=== PATIENT | male | born 1985 | race Caucasian/White ===

== ENCOUNTER 2025-01-29 19:08 | Emergency (ER) | payer MEDICARE, SELFPAY ==
[2025-01-29] VITALS (9 sets, daily range): BP systolic 166–225; BP diastolic 126–162; BMI 33.0
[2025-01-29 19:41] LABS: % Basophils 1.1 % (0-2); % Eosinophils 8.5 % (0-6); % Immature Granulocytes 0.5 % (0-0.5); % Lymphocytes 35.6 % (20.5-51.1); % Monocytes 7.2 % (1.7-9.3); % Neutrophils 47.1 % (42.2-75.2); Absolute Basophils 0.1 10^3/uL (0-0.2); Absolute Eosinophils 0.6 10^3/uL (0-0.7); Absolute Lymphocytes 2.3 10^3/uL (1.2-3.4); Absolute Monocytes 0.5 10^3/uL (0.1-0.6); Absolute Neutrophils 3.1 10^3/uL (1.4-6.5); Hematocrit 41.3 % (39.0-52.0); Hemoglobin 13.7 g/dL (13.0-18.0); Mean Corp Hgb Conc. 33.2 g/dL (33.0-37.0); Mean Corpuscular Hgb 28.8 pg (27.0-31.0); Mean Corpuscular Volume 86.9 fL (80.0-94.0); Mean Platelet Volume 9.2 fL (7.4-10.4); Nucleated Red Blood Cells % 0 % (-); Platelet Count 217 10^3/uL (130-400); Red Blood Cell Count 4.75 10^6/uL (4.70-6.10); Red Cell Dist. Width 13.8 % (11.5-14.5); White Blood Cell Count 6.6 10^3/uL (4.8-10.8)
[2025-01-29 19:56] LABS: ALT (SGPT) 27 U/L (0-50); AST (SGOT) 58 U/L (17-59); Albumin 4.6 g/dl (3.5-5.0); Alkaline Phosphatase 68 U/L (38-126); Blood Urea Nitrogen 19 mg/dl (9-20); Calcium 10.1 mg/dl (8.4-10.2); Carbon Dioxide 23 mmol/L (22-30); Chloride 107 mmol/L (98-107); Estimated Creatinine Clearance 106 ml/min; Glucose 105 mg/dl (70-99); Potassium 4.4 mmol/L (3.5-5.1); Sodium 139 mmol/L (135-145); Total Bilirubin 0.3 mg/dl (0.2-1.3); Total Protein 7.7 g/dl (6.3-8.2); eGFR > 60.00
[2025-01-29 19:58] LABS: Alcohol None Detected
[2025-01-29 20:01] LABS: Troponin I < 0.012 ng/ml
[2025-01-29] MEDS: NSS 1000 IV (21:25)
[2025-01-29] MEDS: TRANDATE 10 MG IV (21:26)
[2025-01-29] MEDS: ATIVAN 1 MG IV (21:26)
--- NOTE | 2025-01-29 21:59 | ED.GENMED ---
History of Present Illness
<Maik Jones MD - Last Filed: 01/30/25 15:09>
General
Chief Complaint: Suicidal Ideation
Source: patient
Exam Limitations: none
Time Seen by Provider: 01/29/25 19:49
Nursing documentation reviewed up to this point in time: agreed with
History of Present Illness
History of Present Illness:
Patient with history of hypertension and depression, with previous history of suicidal attempts, presents to ED secondary to elevated blood pressure along with intermittent chest pain or shortness of breath over the past 1 month, despite taking
lisinopril as an outpatient. In addition, patient does report drinking alcohol, including 3 days ago. Patient has had difficult time sleeping with decreased appetite. At the time evaluation ED, patient does report feeling suicidal with plan.
Denies homicidal ideation. Denies any chest pain at the time of evaluation. Patient states that he has not been sleeping well recently due to depression.
Review of Systems
<Maik Jones MD - Last Filed: 01/30/25 15:09>
Review of Systems
Allergies reviewed?: Yes
All Other Systems: ROS reviewed and negative except as documented in HPI and ROS
Constitutional: Reports no symptoms
EENT: Reports no symptoms
Respiratory: Reports trouble breathing
Cardiac: Reports chest pain
ABD/GI: Reports no symptoms
: Reports no symptoms
Musculoskeletal: Reports no symptoms
Skin: Reports no symptoms
Neurological: Reports no symptoms
Psychiatric: Reports depression and suicidal
Phy Exam
<Maik Jones MD - Last Filed: 01/30/25 15:09>
Physical Exam
Physical Exam:
Physical Exam
General: no apparent distress, not acutely ill. afebrile
Head: nc/at. eomi
Neck: supple. normal range of motion.
Heart: s1/s2 regular rate and rhythm, no murmur. .
Lungs: no acute respiratory distress. clear bilaterally
Abdomen: normal bowel sounds. not tender.
Neuro: alert and oriented x 3. no focal neurological deficits
Skin: no rash
Psychiatric: well kept. interactive and cooperative
Extremities: no edema. no calf tenderness.
Course
<Maik Jones MD - Last Filed: 01/30/25 15:09>
Orders/Labs/Results
Orders:
Orders
01/29/25 19:12
1:1 Observation - Suicide/ Violent Behavior As Directed
Crisis Consult Urgent
Reason for Consult: SUICIDAL WITH PLAN
01/29/25 19:23
Electrocardiogram (*1) Urgent
Reason for Study: Chest Pain
Crisis Consult Urgent
Reason for Consult: +SI
EKG- Treatment ONCE
01/29/25 19:32
Alcohol Urgent
Complete Blood Count/With Diff Urgent
Comprehensive Metabolic Panel Urgent
Troponin I Urgent
01/29/25 21:15
0.9% Sodium Chloride 1000 ml [Nss] 1,000 ml IV BOLUS
Labetalol HCl [Trandate] 10 mg IV NOW STA
Lorazepam [Ativan] 1 mg IV NOW STA
01/29/25 22:11
Labetalol HCl [Trandate] 20 mg IV NOW STA
01/29/25 23:07
Lisinopril [Zestril] 20 mg PO NOW STA
01/29/25 23:28
Fentanyl, Urine Urgent
Urine Drug Abuse Screen Urgent
Date Specimen was Collected: 01/29/25
Time Specimen was Collected: 19:23
01/30/25 02:33
Amlodipine [Norvasc] 5 mg PO NOW STA
Abnormal Lab Results
01/29/25 01/29/25
19:32 23:28
Eosinophils % 8.5 H %
(0-6)
Glucose 105 H mg/dl
(70-99)
Ur Amphetamines Screen Positive H
(Negative)
U Methamphetamines Scrn Positive H
(Negative)
U Benzodiazepines Scrn Positive H
(Negative)
01/29/25 19:32
01/29/25 19:32
Vital Signs
Initial and Last Documented VS:
Initial Vital Signs
Temp Pulse BP Pulse Ox
98.9 F 122 225/162 100
01/29/25 19:15 01/29/25 19:15 01/29/25 19:15 01/29/25 19:15
Last Documented Vital Signs
Temp Pulse Resp BP Pulse Ox
98.5 F 82 20 138/79 99
01/30/25 09:55 01/30/25 09:55 01/30/25 09:55 01/30/25 09:55 01/30/25 09:55
Kathielt;Kun Iyer, - Last Filed: 01/30/25 01:37>
Orders/Labs/Results
Orders:
Orders
01/29/25 19:12
1:1 Observation - Suicide/ Violent Behavior As Directed
Crisis Consult Urgent
Reason for Consult: SUICIDAL WITH PLAN
01/29/25 19:23
Electrocardiogram (*1) Urgent
Reason for Study: Chest Pain
Crisis Consult Urgent
Reason for Consult: +SI
EKG- Treatment ONCE
01/29/25 19:32
Alcohol Urgent
Complete Blood Count/With Diff Urgent
Comprehensive Metabolic Panel Urgent
Troponin I Urgent
01/29/25 21:15
0.9% Sodium Chloride 1000 ml [Nss] 1,000 ml IV BOLUS
Labetalol HCl [Trandate] 10 mg IV NOW STA
Lorazepam [Ativan] 1 mg IV NOW STA
01/29/25 22:11
Labetalol HCl [Trandate] 20 mg IV NOW STA
01/29/25 23:07
Lisinopril [Zestril] 20 mg PO NOW STA
01/29/25 23:28
Fentanyl, Urine Urgent
Urine Drug Abuse Screen Urgent
Date Specimen was Collected: 01/29/25
Time Specimen was Collected: 19:23
01/30/25 02:33
Amlodipine [Norvasc] 5 mg PO NOW STA
Abnormal Lab Results
01/29/25 01/29/25
19:32 23:28
Eosinophils % 8.5 H %
(0-6)
Glucose 105 H mg/dl
(70-99)
Ur Amphetamines Screen Positive H
(Negative)
U Methamphetamines Scrn Positive H
(Negative)
U Benzodiazepines Scrn Positive H
(Negative)
01/29/25 19:32
01/29/25 19:32
Vital Signs
Initial and Last Documented VS:
Initial Vital Signs
Temp Pulse BP Pulse Ox
98.9 F 122 225/162 100
01/29/25 19:15 01/29/25 19:15 01/29/25 19:15 01/29/25 19:15
Last Documented Vital Signs
Temp Pulse Resp BP Pulse Ox
98.5 F 82 20 138/79 99
01/30/25 09:55 01/30/25 09:55 01/30/25 09:55 01/30/25 09:55 01/30/25 09:55
<Maik Jones MD - Last Filed: 01/30/25 15:09>
MDM/Problems Addressed
MDM/Problems Addressed:
One-to-one observation continuing secondary to suicidal ideation with plan. Patient will be transferred to inpatient psychiatric facility, once medically cleared.
Patient with hypertension requiring treatment. Will administer additional dose of his home medication, lisinopril, and reassess.
<Maik Jones MD - Last Filed: 01/30/25 15:09>
*Critical Care Note
Total Time (30-74mins, 75-104mins- exclusive of procedures): Not Applicable
<Kun Iyer DO - Last Filed: 01/30/25 01:37>
Update Note
Update Note:
0131: Pt awaiting psych placement pending improvement of blood pressure. Pt has asymptomatic hypertension. His blood pressure is currently much improved at 154/100. Given he is asymptomatic there is no medical inidcation for further treatment.
Adjustment of outpatient regimen would be the most appropriate management. Treatment of his psychiatric emergency is much more critical.
ED Attending Note
<Maik Jones MD - Last Filed: 01/30/25 15:09>
-
Portions of this chart may have been created with voice recognition software.� Occasional wrong word or��sound alike� substitutions may have occurred due to the inherent limitations of voice recognition software.
Discharge Plan
Departure
Patient Disposition: Psych Facility
Date of Disposition: 01/30/25
Time of Disposition: 01:34
Condition: Fair
Discharge Problem:
Suicidal ideation, Acute depression
Prescriptions:
New
amlodipine 5 mg tablet
5 mg PO DAILY Qty: 30 0RF
No Action
amlodipine 5 mg Tablet
5 mg PO DAILY
Referrals:
Kallie Rousseau MD [Family Provider] -
Interventions
Interventions:
*Risk Screen - Suicide Last Done: 01/29/25 19:10
*General Assessment Last Done: 01/29/25 19:46
*Neglect/Abuse Screening Last Done: 01/29/25 19:19
*ED- Fall Risk Assessment Last Done: 01/29/25 19:19
*ED COVID-19 Vaccine History Last Done: 01/29/25 19:46
*Nursing Disposition Last Done: 01/30/25 09:55
ED-Psychological Assessment Last Done: 01/29/25 20:45
Discharge Date and Time
Discharge Date/Time: 01/30/25 09:57
Print Language: ESTONIAN
[2025-01-29] MEDS: TRANDATE 20 MG IV (22:17)
[2025-01-29] MEDS: ZESTRIL 20 MG PO (23:16)
[2025-01-29 23:53] LABS: Amphetamines Positive (Negative); Benzodiazepines Positive (Negative); Methamphetamines Positive (Negative)
[2025-01-29 23:54] LABS: Barbiturates Negative (Negative); Buprenorphine Negative (Negative); Cocaine Negative (Negative); Marijuana Negative (Negative); Methadone Negative (Negative); Opiates Negative (Negative); Phencyclidine Negative (Negative); Tricyclic Antidepressants Negative (Negative)
[2025-01-30] VITALS: BP 182/112
[2025-01-30 00:14] LABS: Fentanyl, Urine Negative (Negative)
[2025-01-30 01:00] VITALS: BP 154/100
[2025-01-30] MEDS: NORVASC 5 MG PO (03:52)
[2025-01-30 09:55] VITALS: BP 138/79
== END 2025-01-30 09:57 ==
LOC: EMR 19:08
PROVIDERS: Emergency Medicine; EMERGENCY PHYSICIAN Emergency Medicine; FAMILY PHYSICIAN Internal Medicine
DX: R45.851 Suicidal ideations (principal); F32.A Depression, unspecified; I10 Essential (primary) hypertension; Z91.51 Personal history of suicidal behavior
CPT/HCPCS: 99283; 96374; 96375; 96376; 80053; 80306; 80307; 82077; 84484; 85025; 93005

== ENCOUNTER 2025-02-10 11:28 | Emergency (ER) | payer MEDICARE, SELFPAY ==
[2025-02-10 11:32] VITALS: BP 153/96
--- NOTE | 2025-02-10 12:12 | ED.GENMED ---
History of Present Illness
General
Chief Complaint: Crisis Evaluation
Source: patient
Exam Limitations: none
Time Seen by Provider: 02/10/25 11:45
Nursing documentation reviewed up to this point in time: agreed with
History of Present Illness
History of Present Illness:
39-year-old male feels depressed suffers from depression recently admitted and discharged from [facility] is on Cymbalta and BuSpar states he has been taking his meds not helping apparently is homeless, cannot live with friends who is living
with before no overdose no alcohol
Past History
Past History
ED Past Medical History: HTN and Psychiatric
Social History
Tobacco: Non-smoker
Alcohol: None
Drug: None
Personal: Single
Living: homeless
Employment: Not employed
Review of Systems
Review of Systems
All Other Systems: Not applicable
Psychiatric: Reports depression; Denies anxiety, suicidal or hallucinations
Phy Exam
Physical Exam
Physical Exam:
Physical Exam
General: 39 male flat affect
Neck: No jaundice
Heart: Regular
Lungs: no acute respiratory distress.
Neuro: alert and oriented. no focal neurological deficits
Skin: no rash
Psychiatric: Depressed, not suicidal not hallucinating
Extremities: no edema.
Course
Orders/Labs/Results
Orders:
Orders
02/10/25 11:31
1:1 Observation - Suicide/ Violent Behavior As Directed
Crisis Consult Urgent
Reason for Consult: SI, depression
Vital Signs
Initial and Last Documented VS:
Initial Vital Signs
Temp Pulse Resp BP Pulse Ox
98 F 107 16 153/96 100
02/10/25 11:32 02/10/25 11:32 02/10/25 11:32 02/10/25 11:32 02/10/25 11:32
Last Documented Vital Signs
Temp Pulse Resp BP Pulse Ox
98 F 107 16 153/96 100
02/10/25 11:32 02/10/25 11:32 02/10/25 11:32 02/10/25 11:32 02/10/25 11:32
MDM/Problems Addressed
Differential Diagnosis Includes:
Depression, social stressors, homelessness, not suicidal
MDM/Problems Addressed:
Depression
Chronic conditions affecting care: Psychiatric illness
Acute Exacerbation and/or Progression of Chronic Illness: Psychiatric illness
*Critical Care Note
Total Time (30-74mins, 75-104mins- exclusive of procedures): Not Applicable
Update Note
Update Note:
1245, reviewed with crisis patient cleared to go, will stay with a friend outpatient resources given
ED Attending Note
-
Portions of this chart may have been created with voice recognition software.� Occasional wrong word or��sound alike� substitutions may have occurred due to the inherent limitations of voice recognition software.
Discharge Plan
Departure
Patient Disposition: Home (Routine Discharge)
Date of Disposition: 02/10/25
Time of Disposition: 12:46
Patient with high blood pressure during this ER visit?: No
Condition: Good
Discharge Problem:
Depression
Instructions: Depression, Adult (DC)
Prescriptions:
No Action
amlodipine 5 mg tablet
5 mg PO DAILY Qty: 30 0RF
amlodipine 5 mg Tablet
5 mg PO DAILY
Referrals:
Kallie Rousseau MD [Family Provider] -
Interventions
Interventions:
*Risk Screen - Suicide Last Done: 02/10/25 11:32
*Neglect/Abuse Screening Last Done: 02/10/25 11:32
ED-Psychological Assessment Last Done: 02/10/25 11:50
Discharge Date and Time
Print Language: [place]
== END 2025-02-10 15:07 | disposition home or self-care (01) ==
LOC: EMR 11:28
PROVIDERS: EMERGENCY PHYSICIAN Emergency Medicine; FAMILY PHYSICIAN Internal Medicine
DX: F32.A Depression, unspecified (principal); I10 Essential (primary) hypertension
CPT/HCPCS: 99283